=== PATIENT | female | born 1965 | race Hispanic/Latino ===

== ENCOUNTER → 2017-07-29 | Outpatient (CLI) | payer BC ==
[~2017-07-29] MED LIST: CALCIUM PO; VITAMIN B COMP1 EACH PO; VITAMIN D1000 UNI1 PO
--- NOTE | 2017-07-29 13:57 | Diagnostic Imaging Report ---
PROCEDURE:ABDOMINAL ULTRASOUND COMPARISON:[facility], [place], US ABDOMEN COMPLETE, 11/05/2013, 7:47. INDICATIONS: BLOATING AND BACK PAIN TECHNIQUE: Transverse and longitudinal images of the upper abdomen were obtained. FINDINGS: Liver: Size: 13.8 cm in the right midclavicular line, normal Appearance: Slightly increased echogenicity and coarsened echotexture, smooth contour Mass: No focal masses Spleen: Size: 7.6 cm in length, normal Echogenicity: Normal Mass: No focal masses Gallbladder: Stones/Sludge: None Appearance: No wall thickening, pericholecystic fluid or hydrops. Sonographic Nava's Sign: Negative Bile Ducts: Intrahepatic Ducts: No dilatation Extrahepatic Ducts: Common bile duct measures 0.3 cm, no dilatation Pancreas: Visualized portions of the neck and proximal body are normal. Right Kidney: Size: 10.1 cm Echogenicity: Normal Collecting System: No hydronephrosis Stone: None Cyst/Mass: None Left Kidney: Size: 9.3 cm Echogenicity: Normal Collecting System: No hydronephrosis Stone: None Cyst/Mass: None Vessels: Aorta: Visualized portions are normal Inferior Vena Cava: Visualized portions and normal Main Portal Vein: 0.9 cm, normal size with hepatopedal flow. Free Fluid: No ascites or pleural effusions IMPRESSION: Slight increase in echogenicity and coarsened echotexture of the hepatic parenchyma otherwise unremarkable abdominal ultrasound. Tadeo Veras M.D. Dictated by: Tadeo Veras M.D. on 07/29/2017 at 14:06 Electronically approved by: Tadeo Veras M.D. on 07/29/2017 at 14:06
--- NOTE | 2017-07-29 14:26 | Diagnostic Imaging Report ---
EXAM: Transabdominal Pelvic Ultrasound INDICATION: Pain and bloating. COMPARISON: None TECHNIQUE: Grayscale transverse and sagittal transabdominal and transvaginal images were obtained of the pelvis. CLINICAL HISTORY: 51 year old A0; last menstrual period: Menopausal. FINDINGS: Uterus Orientation: Normal Size: 8.0 x 4.0 x 4.9 cm, Normal Mass: None Cervix: Normal Endometrium: Thickness: 0.7 cm, mildly thickened. Appearance: Homogeneous echotexture without focal thickening. Right ovary: Not identified due to shadowing from overlying bowel gas. Left ovary: No identified due to shadowing from overlying bowel gas. Adnexa: Normal Cul-de-sac: Possible small volume of fluid within the posterior cul-de-sac. IMPRESSION: 1. Mildly abnormally thickened endometrial stripe estimated at 7 mm; significance of this finding is uncertain without history of postmenopausal bleeding. Recommend gynecology consultation for further evaluation/management. 2. Ovaries not visualized due to shadowing from overlying bowel gas. If clinical concern remains, consider further evaluation with MRI of pelvis without and with contrast. Signed by: Dr. Tadeo Veras M.D. on 07/29/2017 2:22 PM
== END ==
LOC: US 11:32
PROVIDERS: ATTEND Family Medicine
DX: R14.0 Abdominal distension (gaseous) (principal)
CPT/HCPCS: 76700; 76856

== ENCOUNTER → 2018-08-07 | Outpatient (CLI) | payer BC ==
--- NOTE | 2018-08-07 12:00 | Diagnostic Imaging Report ---
EXAM: Right upper quadrant abdominal ultrasound INDICATION: Right upper quadrant pain COMPARISON: None. TECHNIQUE: Transverse and longitudinal images of the right upper quadrant abdomen were obtained FINDINGS: Liver: Size: Measures 13.2 cm in the right midclavicular line, normal Appearance: Normal echogenicity, smooth contour Mass: No focal masses Gallbladder: No distension, pericholecystic fluid, wall thickening, stone, or reported sonographic Nava's sign. Gallbladder wall measures 0.3 cm. Bile Ducts: Intrahepatic Ducts: No dilatation Extrahepatic Ducts: Common bile duct measures 0.3 cm, no dilatation Pancreas: Visualized portions of the pancreas are normal. Kidney: The right kidney measures 9.9 cm without evidence of hydronephrosis or stone. Vessels: Aorta: Visualized portions are normal Inferior Vena Cava: Visualized portions are normal Main Portal Vein: 0.7 cm, normal size with hepatopetal flow. Free Fluid: No evidence of ascites. IMPRESSION: No sonographic evidence of cholecystitis or cholelithiasis. Mildly echogenic right renal pyramids, a non-specific finding, and could represent a variety of causes such as hypervitaminosis D or medullary sponge kidney. Signed by: Dr. Peter Harris MD on 08/07/2018 11:57 AM
== END ==
LOC: US 09:12
PROVIDERS: ATTEND Family Medicine
DX: R10.11 Right upper quadrant pain (principal)
CPT/HCPCS: 76705

== ENCOUNTER → 2019-03-02 | Outpatient (CLI) | payer BC ==
--- NOTE | 2019-03-02 18:03 | Diagnostic Imaging Report ---
Abdominal ultrasound, 03/02/2019. History: Abdominal pain. Comparison: None available. Discussion: Transverse and longitudinal images of the abdomen were obtained demonstrating a liver of normal size but mildly increased echogenicity measuring 13.3 cm in length. There is no evidence of a focal hepatic mass. The portal vein is patent with hepatopetal flow and is within normal limits measuring 7 mm in diameter. The biliary tree is within normal limits with the common bile duct measuring 2 mm in diameter. The gallbladder is normal without evidence of wall thickening or pericholecystic fluid. The sonographic Nava's sign was negative. The kidneys are normal in size and echogenicity without evidence of hydronephrosis, stones, or mass and measures 9.7 cm in length on the right and 8.9 cm on the left. Renal cortex measures 1.0 and 1.1 cm in thickness, respectively. The spleen measures 7.2 cm in length. The pancreatic <body and tail> are visualized and are normal in appearance. The abdominal aorta is within normal limits. There is no evidence of free fluid. IMPRESSION: Mild fatty infiltration of the liver. Otherwise unremarkable abdominal ultrasound. No evidence of cholelithiasis. Signed by: Aaron Pope on 03/02/2019 6:00 PM
== END ==
LOC: US 16:19
PROVIDERS: ATTEND Family Medicine
DX: R07.9 Chest pain, unspecified (principal)
CPT/HCPCS: 76700

== ENCOUNTER → 2019-04-30 | Day surgery (SDC) | payer BC ==
[2019-04-28 12:04] LABS: BASOPHILS % 0.4 % (0.0-1.0); EOSINOPHILS # (AUTO) 0.1 (0.0-0.4); EOSINOPHILS % 1.4 % (0.0-6.0); HEMATOCRIT 42.1 % (34.2-44.1); HEMOGLOBIN 13.6 g/dL (12.0-16.0); LYMPHOCYTES # (AUTO) 2.1 (1.0-3.2); LYMPHOCYTES % 29.8 % (18.0-39.1); MEAN CORPUSCULAR HEMOGLOBIN 28.6 pg (28-32); MEAN CORPUSCULAR HGB CONC 32.3 g/dL (31-35); MEAN CORPUSCULAR VOLUME 88.4 fL (81-99); MONOCYTES # (AUTO) 0.5 (0.2-0.8); MONOCYTES % 6.7 % (4.4-11.3); NEUTROPHILS # (AUTO) 4.3 (2.1-6.9); NEUTROPHILS % 61.6 % (38.7-80.0); PLATELET COUNT 225 x10e3/uL (140-360); RED BLOOD COUNT 4.76 x10e6/uL (3.6-5.1); RED CELL DISTRIBUTION WIDTH 12.3 % (11.7-14.4)
[2019-04-28 12:20] LABS: ANION GAP 13.5 mmol/L (8-16); BLOOD UREA NITROGEN 13 mg/dL (7-26); BUN/CREATININE RATIO 15 (6-25); CALCIUM 9.4 mg/dL (8.4-10.2); CARBON DIOXIDE 29 mmol/L (22-29); CHLORIDE 103 mmol/L (98-107); CREATININE, SERUM 0.85 mg/dL (0.57-1.11); EST GLOMERULAR FILTRATION RATE > 60 ML/MIN (60-); GLUCOSE 87 mg/dL (74-118); POTASSIUM 4.5 mmol/L (3.5-5.1); SODIUM 141 mmol/L (136-145)
[~2019-04-30] MED LIST changes: +CLOTRIMAZOLE15 GM TOP; +FENTANYL CITRATE/PF 100MCG/2 ML INJ ONE; +MIDAZOLAM HCL 2 MG/2 ML VIAL ONE; +PANTOPRAZOLE SO40 MG PO; +PROPOFOL IV EMULSION 10 MG/ML 20 ML VIAL ONE; +VITAMIN D400 UNIT PO
[2019-04-30 09:15] VITALS: BP 106/72
== END | disposition home or self-care (01) ==
LOC: OR 06:05
PROVIDERS: ATTEND Surgery
DX: R13.10 Dysphagia, unspecified (principal); R12 Heartburn; Z01.810 Encounter for preprocedural cardiovascular examination; Z01.812 Encounter for preprocedural laboratory examination; K21.9 Gastro-esophageal reflux disease without esophagitis; K76.0 Fatty (change of) liver, not elsewhere classified; E78.5 Hyperlipidemia, unspecified; K29.70 Gastritis, unspecified, without bleeding
CPT/HCPCS: 36415; 43235; 80048; 85025; 93005; J2250; J2704; J3010; 43239

== ENCOUNTER → 2020-02-15 | Outpatient (CLI) | payer BC ==
[~2020-02-15] MED LIST changes: -FENTANYL CITRATE/PF 100MCG/2 ML INJ ONE; -MIDAZOLAM HCL 2 MG/2 ML VIAL ONE; -PROPOFOL IV EMULSION 10 MG/ML 20 ML VIAL ONE
--- NOTE | 2020-02-15 13:22 | Diagnostic Imaging Report ---
EXAM: US ABDOMEN COMPLETE DATE: 02/15/2020 1:07 PM INDICATION: Right abdominal pain COMPARISON: Abdominal ultrasound of 03/02/2019 TECHNIQUE: Transverse and longitudinal hernandez scale and color doppler sonographic images of the upper abdomen were obtained. FINDINGS: LIVER 14.9 cm in the right midclavicular line. Normal echogenicity of the liver with normal contour, no masses. SPLEEN 7.5 cm in maximum diameter. Normal echogenicity, no masses. GALLBLADDER No gallbladder wall thickening, distension, stone, or pericholecystic fluid. Negative reported sonographic Nava's sign. The gallbladder wall measures 2mm BILE DUCTS No intra nor extra-hepatic biliary dilation. Common bile duct measures 2mm PANCREAS: Visualized portions are normal. RIGHT KIDNEY: 9.3 cm Echogenicity: Normal Collecting System: No hydronephrosis Stones: None Cyst/Mass: None LEFT KIDNEY: 9.0 cm Echogenicity: Normal Collecting System: No hydronephrosis Stones: None Cyst/Mass: None VESSELS: Aorta: Visualized portions are within normal size limits Inferior Vena Cava: Visualized portions are normal Main Portal Vein: 0.8 cm, normal size with hepatopetal flow. FREE FLUID: None IMPRESSION: Unremarkable abdominal ultrasound. Signed by: Ebenezer Florez MD on 02/15/2020 1:19 PM
== END ==
LOC: US 12:04
PROVIDERS: ATTEND Family Medicine
DX: R10.11 Right upper quadrant pain (principal)
CPT/HCPCS: 76700

== ENCOUNTER → 2020-11-10 | Outpatient (CLI) | payer BC | LOC: US 06:28 | PROVIDERS: ATTEND Surgery | DX: R10.11 Right upper quadrant pain (principal) | CPT/HCPCS: 76705; 78227; A9537 ==